=== PATIENT | male | born 1995 | race African-American/Black ===

== ENCOUNTER 2020-08-31 21:06 | Emergency (ER) | payer BC | END 2020-08-31 22:48 | disposition home or self-care (01) | LOC: CSHERS 21:06 | DX: K62.89 Other specified diseases of anus and rectum (principal); F17.210 Nicotine dependence, cigarettes, uncomplicated | CPT/HCPCS: 99281 ==

== ENCOUNTER 2021-09-29 09:47 | Emergency (ER) | payer SELFPAY ==
[2021-09-29 11:01] LABS: Bilirubin Neg (Negative); Blood, Urine Negative (Negative); Clarity Clear (Clear); Glucose, Urine (Dipstick) Normal (Negative); Ketone, Urine Negative (Negative); Leukocyte Negative (Negative); Nitrite Negative (Negative); Protein, Urine (Dipstick) 15 mg/dl (Neg-Trace)
[2021-09-29 11:02] LABS: #Eosinphils 0.1 10x3/uL (0.0-0.5); #Monocytes 0.5 10x3/uL (0.0-1.1); #Neutrophils 6.4 10x3/uL (1.5-8.4); %Basophils 0.1 % (0.0-2.0); %Eosinophils 0.7 % (0.0-6.0); %Lymphocytes 7.2 % (18.0-47.0); %Neutrophils 85.6 % (40.0-75.0); Hemoglobin 15.9 g/dL (13.5-17.5); Mean Corpuscular HGB CONC 33.3 g/dL (32.0-36.0); Mean Corpuscular Hemoglobin 29.3 pg (27.0-33.0); Mean Corpuscular Volume 88.2 fl (81.2-95.1); Mean Platelet Volume 11.7 fl (7.4-10.4); Platelet Count 180 10x3/uL (150-450); RBC Distribution Width 13.2 % (11.5-14.5); Red Blood Cell (RBC) Count 5.42 10x6/uL (4.32-5.72); White Blood Cell (WBC) Count 7.5 10x3/uL (3.5-10.5)
[2021-09-29 11:15] LABS: ALT (SGPT) 17 U/L (8-55); AST (SGOT) 24 U/L (5-34); Alkaline Phosphatase 60 U/L (40-110); Anion Gap 19 mmol/L (10-20); BUN (Urea Nitrogen) 15 mg/dL (8.9-20.6); Bilirubin, Total 1.2 mg/dL (0.2-1.2); Calc. Creatinine Clearance 0 mL/min (70-130); Calcium 9.8 mg/dL (7.8-10.44); Carbon Dioxide 23 mmol/L (22-29); Chloride 103 mmol/L (98-107); Globulin 2.9 g/dL (2.4-3.5); Glucose 90 mg/dL (70-105); Potassium 3.9 mmol/L (3.5-5.1); Protein, Total 7.9 g/dL (6.0-8.3); Sodium 141 mmol/L (136-145)
[2021-09-29] MEDS ORDERED: Ondansetron PF 4 MG/2 ML Vial ONE (11:32)
[2021-09-29] MEDS ORDERED: Pantoprazole 40 MG VIAL ONE (11:32)
== END 2021-09-29 13:13 | disposition home or self-care (01) ==
LOC: CSHERS 09:47
DX: K29.70 Gastritis, unspecified, without bleeding (principal); F17.210 Nicotine dependence, cigarettes, uncomplicated
CPT/HCPCS: 80053; 81003; 85025; 96374; 96375; C9113; J2405

== ENCOUNTER 2022-04-08 07:33 | Emergency (ER) | payer SELFPAY | END 2022-04-08 08:22 | disposition home or self-care (01) | LOC: CSHERS 07:33 | DX: M26.601 Right temporomandibular joint disorder, unspecified (principal); F17.210 Nicotine dependence, cigarettes, uncomplicated | CPT/HCPCS: 99283 ==